=== PATIENT | male | born 1955 | race Caucasian/White ===

== ENCOUNTER 2016-09-20 15:27 | Inpatient (IN) ==
[2016-09-20] MEDS ORDERED: ONDANSETRON 4 MG/2 ML VIAL IV STA (16:11)
[2016-09-20] MEDS ORDERED: MORPHINE 2 MG/1 ML SYRINGE IV STA ×2 (16:11→17:10)
[2016-09-20 16:34] LABS: Basophils % 0.2 % (0.0-0.8); Eosinophils # 0.1 10*3/uL (0.0-0.87); Eosinophils % 1.2 % (0.00-10.9); Hematocrit 38.7 VOL% (42.0-52.0); Immature Granulocytes % 0.3 %; Immature Granulocytes Absolute 0.03 #; Lymphocytes # 1.2 10*3/uL (1.4-4.0); Lymphocytes % 13.7 % (21.2-54.2); Mean Corpuscular Hemoglobin 26 PG (27-34); Mean Corpuscular Volume 83.8 FL (87-102); Mean Platelet Volume 10.9 FL (9.6-12.0); Monocytes # 0.7 10*3/uL (0.11-0.8); Monocytes % 7.6 % (1.7-12.7); Neutrophils # 6.8 10*3/uL (1.4-7.4); Platelet Count 229 T/CUMM (130-400); Red Blood Count 4.62 MC/CUMM (3.8-5.5); Red Cell Distribution Width 15.9 % (9.3-17.3); White Blood Count 8.8 T/CUMM (4-12)
[2016-09-20] MEDS ORDERED: MORPHINE 2 MG/1 ML SYRINGE ONE ×2 (16:43→17:10)
[2016-09-20] MEDS ORDERED: ONDANSETRON 4 MG/2 ML VIAL ONE (16:43)
[2016-09-20 16:54] LABS: Albumin 3.4 G/DL (3.4-5.0); Bilirubin,Total 0.5 MG/DL (0.2-1.0); Calcium 8.6 MG/DL (8.5-10.1); Osmolality,Calculated 277.5 MOS/KG (273-304); Potassium 3.8 MMOL/L (3.5-5.1); Total Protein 6.5 G/DL (6.4-8.3)
--- NOTE | 2016-09-20 17:02 | CT Report ---
CT abdomen pelvis wo con Indication: Tenderness to palpation left lower quadrant. CT ABDOMEN AND PELVIS WITHOUT CONTRAST DLP: 885 mGy*cm. One or more of the following dose reduction techniques was used: Automated exposure control, adjustment of the mA and/or kV according the patient size, or use of iterative reconstruction techniques. Comparison: 10/22/2013. Technique: Axial noncontrast CT images of the abdomen and pelvis were obtained. Abdomen: Mild inflammation involves the descending colon where extensive diverticulosis is present. No perforation, abscess or free air. Cholecystectomy clips. Normal heart size. Prominent pericardial fat. Clear lung bases. Multiple pancreatic calcifications are similar to the previous exam. Unenhanced liver, spleen, adrenal glands remain grossly unremarkable as contrast. Nonobstructing 1 and 2 mm bilateral nephrolithiasis again shown. No bowel obstruction. Pelvis: Extensive diverticulosis of the entire colon is present, especially the rectosigmoid segment. No rectosigmoid segment inflammation. Urinary bladder is unremarkable. Prostate is normal in size. No free fluid or free air. Impression: 1. Descending colon diverticulitis. 2. Nonobstructing punctate bilateral kidney stones. 3. Status post cholecystectomy. PROCEDURE INTERPRETED AT [facility] DEPARTMENT OF RADIOLOGY Final Report Signed by: Paul Souza M.D.
[2016-09-20] MEDS ORDERED: SODIUM CHLORIDE 0.9% 500 ML IV STA ×2 (17:10→19:16)
--- NOTE | 2016-09-20 17:49 | Emergency Department Note ---
Jake Majano Brittany, am scribing for, and in the presence of, Erika De MD 16:13. Santino Majano Kathryn, MD, personally performed the services described in this documentation, ascribed by Charlotte Joseph in my presence, and it is both accurate and complete 749 . Arrival - Arrival Chief Complaint: Abdominal / Flank Pain Stated Complaint: FLANK PAIN/LL SIDE ED Nursing Triage Note: C/O HAVING PAIN IN THE LEFT LOWER ABDOMEN AREA SINCE 0200, DENIES NAUSEA., DENIES HAVING DIARHEA., DENIES VOMITING., DENIES HAVING INCREASE TEMP., DENIES HAVING URINARY SYMPTOMS,. " FEELS LIKE SOMETHING DROPPED DOWN IN THERE" Mode of Arrival: Ambulatory Limitations: No Limitations Source: Patient, Significant other, RN Notes Reviewed - History of Present Illness HPI Narrative: Patient is a 60 y/o male presenting to Non Urgent Care with c/o LLQ abdominal pain with an onset of 0200 this morning. Patient reports LLQ pain as constant, rated a 7/10. Patient denies having any associated N/V/D, fever, dysuria, hematuria, or back pain with this. Patient reports that he was able to tolerate well some jello and a piece of toast this morning. His last normal bowel movement was yesterday. Patient currently is on Plavix. He reports a history of IV dye/contrast reaction in which he became flushed afterwards. Patient has a history of Diverticulitis, but denies history of kidney stones. Patient does have a history significant for CVA x6, with most recent four in July 2016. After this occurrence patient ceased use of smoking tobacco. He also has a history of COPD, Emphysema, and NIDDM. He does utilize at home oxygen of 3 liters. No other complaint/pain. Onset (ago): hour(s) (14) Consistency: constant Severity: moderate Severity scale (1-10): 7 Quality: aching Allergies/Adverse Reactions: Allergies Allergy/AdvReac Type Severity Reaction Status Date / Time Warfarin [From Coumadin] Allergy HIVES Verified 09/20/16 15:38 Home Medications: Home Medications Medication Instructions Recorded Confirmed Type Atorvastatin [Lipitor] 40 mg PO QAM 09/20/16 09/20/16 History Clopidogrel [Plavix] 75 mg PO QAM 09/20/16 09/20/16 History Escitalopram [Lexapro] 10 mg PO BEDTIME 09/20/16 09/20/16 History Glimepiride 1 mg PO QAM 09/20/16 09/20/16 History Lisinopril [Prinivil] 10 mg PO QPM 09/20/16 09/20/16 History Metformin HCl 500 mg PO BIDAC 09/20/16 09/20/16 History Nitroglycerin Sl Tab [Nitrostat] 0.4 mg SL Q5M PRN 09/20/16 09/20/16 History raNITIdine HCl [Ranitidine HCl] 300 mg PO QAM 09/20/16 09/20/16 History Review of System - Review of System 12 point system: reviewed and no additional remarkable complaints except as stated - Review of System Constitutional: Absent: chills, fever Eyes: Absent: vision change Head/Ears/Nose/Throat: Absent: nasal drainage, sore throat Respiratory: Absent: respiratory distress Cardiovascular: Present: edema. Absent: chest pain Gastrointestinal: Present: abdominal pain. Absent: nausea, vomiting, diarrhea, constipation Genitourinary male: Absent: urgency, dysuria, frequency, hematuria Musculoskeletal: Absent: arm pain, back pain, leg pain, neck pain Skin: Absent: rash Neurological: Absent: headache Psychiatric: Absent: anxiety, depression Medical,Surgical,& Family Hx - Medical History Cardio: History of: CHF, CAD, Hypertension, [place] Psychological: History of: Bipolar Disorder, Schizophrenia Neurology: History of: Cerebrovascular Accident Endocrine: History of: Diabetes Mellitus (NIDDM), Dyslipidemia Respiratory: History of: COPD Gastrointestinal: History of: Gastrointestinal Bleed, GI Problems - Surgical History Cardiac Surgeries: Sugical HX of: Cardiac Catheterization Abdominal Surgeries: Surgical HX of: Cholecystectomy - Family History Family History: Reports;: Family Cancer, Family Diabetes - Social History Smoking Status: Smoker, status unknown Frequency of Alcohol Use: None Type of Drug Use: None Exam Vital Signs: Vital Signs Temperature 98.4 F 09/20/16 15:32 Pulse Rate 78 09/20/16 15:32 Respiratory Rate 18 09/20/16 15:32 Blood Pressure 111/69 09/20/16 15:32 O2 Sat by Pulse Oximetry 90 L 09/20/16 15:32 - General General appearance: alert, in no apparent distress - Head Head exam: Present: atraumatic, normocephalic, normal inspection - Eye Eye exam: Present: normal appearance, PERRL, EOMI - ENT ENT exam: Present: normal exam, normal oropharynx, mucous membranes moist - Neck Neck exam: Present: normal inspection, full ROM, trachea midline - Chest Chest inspection: Present: normal inspection, symmetric chest wall rise - Respiratory Respiratory exam: Present: normal lung sounds bilaterally. Absent: rales, rhonchi, wheezes - Cardiovascular Cardiovascular exam: Present: regular rate, normal rhythm ( ), normal heart sounds. Absent: murmur, rubs, gallop - Abdominal Exam Abdominal exam: Present: soft, tenderness (LLQ), guarding (mild), normal bowel sounds. Absent: distention - Extremities Exam Extremities exam: Present: normal inspection, full ROM - Back Exam Back exam: Present: normal inspection, full ROM - Neurological Exam Neurological exam: Present: alert, oriented X3, CN II-XII intact. Absent: motor sensory deficit - Psychiatric Psychiatric exam: Present: normal affect - Skin Skin exam: Present: warm, dry, intact, normal color Course Course Narrative: Diverticulitis on CT. Discussed with Hospitalist. Will admit for IV abx. - Reevaluation(s) Reevaluation #1: No change in pain with morphine. Exam stable, still moderately TTP LLQ with guarding. Will give additional pain meds. Results - Labs CBC & BMP: 09/20/16 16:26 09/20/16 16:26 - Diagnostic Findings Procedure: CT Abdomen and Pelvis: report reviewed by me (1. Descending colon diverticulitis. 2. Nonobstructing punctate bilateral kidney stones. 3. S/p cholecystectomy.) Disposition Clinical Impression: Diverticulitis Case discussed with: patient, patient's family Disposition: Still a Patient Condition: Stable Time of Disposition: 17:49
[2016-09-20] MEDS ORDERED: ONDANSETRON 4 MG/2 ML VIAL IV PRN (18:00)
[2016-09-20] MEDS ORDERED: metroNIDAZOLE INJ 500 MG in PREMIX 1 EACH IV SCH (18:00)
[2016-09-20] MEDS ORDERED: SODIUM CHLORIDE 0.9% 1,000 ML IV SCH (18:00)
[2016-09-20] MEDS ORDERED: CIPROFLOXACIN INJ 400 MG in PREMIX 1 EACH IV SCH (18:00)
[2016-09-20] MEDS ORDERED: HYDROmorphone 2 MG/1 ML VIAL IV PRN (18:00)
[2016-09-20] MEDS ORDERED: DEXTROSE 50% 25 GM/50 ML VIAL IV PRN (18:03)
[2016-09-20] MEDS ORDERED: GLUCAGON 1 MG VIAL IM PRN (18:03)
[2016-09-20] MEDS ORDERED: NITROGLYCERIN SL 0.4 MG TABLET SL PRN (18:03)
--- NOTE | 2016-09-20 18:05 | Hospitalist History & Physical ---
Assessment and Plan - Time spent with patient Time spent with patient: Greater than 30 minutes (1) Diabetes Status: Acute Assessment and plan: 60-year-old white male with multiple medical problems admitted with acute diverticulitis. Patient has no white count and no fever but due to his multiple medical problems it was felt best to admit for IV antibiotics. His case has been discussed with Dr. Michelle. Acute diverticulitis--we will start Cipro and Flagyl, clear liquid diet as tolerated, pain and nausea control Diabetes--His home medicines will be restarted except his p.o. diabetes medications. He will be started on sliding scale insulin Hypertension and CAD--restart home meds and monitor. Patient is on Plavix for stents Bipolar and schizoaffective disorder--restart home meds and monitor COPD--we will restart patient's home medicine. He is on home O2 so he will continue this here History of CVA--patient has light sensitivity and minimal left lower extremity weakness. We will continue his Plavix Current Visit: No (2) Hypertension Status: Acute Current Visit: No (3) Schizo-affective schizophrenia Status: Acute Current Visit: No (4) COPD (chronic obstructive pulmonary disease) Status: Acute Current Visit: No (5) CVA (cerebral infarction) Status: Acute Current Visit: No (6) Diverticulitis Status: Acute Current Visit: Yes History of Present Illness Chief complaint: Left lower quadrant abdominal pain History of present illness: Mr. Spence is a 60 year old male with history of bipolar disorder and schizophrenia, hypertension, diabetes, COPD, and CVA presenting to the ED with left lower quadrant pain since 2 AM this morning. Patient states the pain is stabbing with pressure and fullness. He rates it a 7 out of 10 and constant with associated nausea and no vomiting. He states he has never had this pain before. states he has run fever intermittently in the last couple of days. Patient states 2 months ago he had 6 strokes with seizures and he quit smoking at that time. He does use home oxygen on 3 L. Patient denies headache , dizziness, dysphasia, chest pain, shortness of breath, diarrhea or constipation, or lower extremity edema. Patient CT scan in the ED showing descending colon diverticulitis with nonobstructing punctate bilateral kidney stones. His white count is normal with normal LFTs. Case was discussed with Dr. Garza and admitting physician Dr. Ochoa. Patient is being admitted for diverticulitis. Home Medications Medication Instructions Recorded Confirmed Type Atorvastatin [Lipitor] 40 mg PO QAM 09/20/16 09/20/16 History Clopidogrel [Plavix] 75 mg PO QAM 09/20/16 09/20/16 History Escitalopram [Lexapro] 10 mg PO BEDTIME 09/20/16 09/20/16 History Glimepiride 1 mg PO QAM 09/20/16 09/20/16 History Lisinopril [Prinivil] 10 mg PO QPM 09/20/16 09/20/16 History Metformin HCl 500 mg PO BIDAC 09/20/16 09/20/16 History Nitroglycerin Sl Tab [Nitrostat] 0.4 mg SL Q5M PRN 09/20/16 09/20/16 History raNITIdine HCl [Ranitidine HCl] 300 mg PO QAM 09/20/16 09/20/16 History Allergies Allergy/AdvReac Type Severity Reaction Status Date / Time Warfarin [From Coumadin] Allergy HIVES Verified 09/20/16 15:38 Medical,Surgical,& Family Hx - Medical History Cardio: History of: CHF, CAD, Hypertension, [place] Psychological: History of: Bipolar Disorder, Schizophrenia Neurology: History of: Cerebrovascular Accident Endocrine: History of: Diabetes Mellitus (NIDDM), Dyslipidemia Respiratory: History of: COPD Gastrointestinal: History of: Gastrointestinal Bleed, GI Problems - Surgical History Cardiac Surgeries: Sugical HX of: Cardiac Catheterization Abdominal Surgeries: Surgical HX of: Cholecystectomy - Family History Family History: Reports;: Family Cancer, Family Diabetes - Social History Smoking Status: Former smoker Frequency of Alcohol Use: None Type of Drug Use: None Marital Status: Lives With:: Spouse Review of systems: A complete 10 system review of systems was obtained and pertinent positives and negatives are in HPI. Exam - Constitutional Vitals: Period Temp Pulse Resp BP Sys/[place]land Pulse Ox Last 24 Hr 98.4 F 78 18 111/69 90 Exam: 60-year-old white male, no acute distress, alert and oriented is present Constitutional System: No distress. No tremulousness. Head: Normocephalic, atraumatic. Ears, Nose and Throat System: No evidence of Otitis or Mastoiditis. No epistaxis or discharge Eyes System: Pupils equal, round, and reactive. Extraocular muscles intact. Neck: Supple, without adenopathy, No jugular venous distention. No thyromegaly, neck mass, or prior surgery apparent. Respiratory System: Chest clear to auscultation. Cardiovascular System: Heart with regular rate and rhythm. No murmur. GI System: Abdomen soft, tender to palpation in left lower quadrant. Normo active bowel sounds present. Musculoskeletal System: limbs with no pedal edema. unappreciable distal pulses due to adipose tissue. Neurological System: No discernable sensory deficit. No aphasia Psychiatric System: Conversation is rational Results - Labs CBC & BMP: 09/20/16 16:26 09/20/16 16:26 Lab Results: I have reviewed the past 24 hour labs - Diagnostic Findings Procedure: CT Abdomen and Pelvis: report reviewed by me (Acute diverticulitis)
[2016-09-20] MEDS: SODIUM CHLORIDE 0.9% 1,000 ML IV SCH (19:44)
[2016-09-20] MEDS: LISINOPRIL 10 MG TABLET PO SCH (20:05)
[2016-09-20] MEDS: metroNIDAZOLE INJ 500 MG in PREMIX 1 EACH IV SCH (20:20)
[2016-09-20] MEDS: INSULIN LISPRO 100 UNIT/ML SUBCUT SCH (20:45)
[2016-09-20] MEDS: CIPROFLOXACIN INJ 400 MG in PREMIX 1 EACH IV SCH (21:36)
[2016-09-20] MEDS: ESCITALOPRAM 10 MG TABLET PO SCH (21:48)
[2016-09-21] MEDS: metroNIDAZOLE INJ 500 MG in PREMIX 1 EACH IV SCH ×4 (02:07→20:59)
[2016-09-21] MEDS: SODIUM CHLORIDE 0.9% 1,000 ML IV SCH ×3 (03:52→19:14)
[2016-09-21 07:46] LABS: Basophils % 0.1 % (0.0-0.8); Eosinophils # 0.2 10*3/uL (0.0-0.87); Eosinophils % 2.2 % (0.00-10.9); Hematocrit 32.2 VOL% (42.0-52.0); Hemoglobin 10.1 GM/DL (14.0-18.0); Immature Granulocytes % 0.5 %; Immature Granulocytes Absolute 0.04 #; Lymphocytes # 1.3 10*3/uL (1.4-4.0); Lymphocytes % 16.1 % (21.2-54.2); Mean Corpuscular HGB Conc 31.4 GM/DL (32-36); Mean Corpuscular Hemoglobin 26 PG (27-34); Mean Corpuscular Volume 83.4 FL (87-102); Monocytes # 0.7 10*3/uL (0.11-0.8); Monocytes % 8.9 % (1.7-12.7); Neutrophils # 5.7 10*3/uL (1.4-7.4); Neutrophils % 72.2 % (38.7-73.9); Platelet Count 186 T/CUMM (130-400); Red Blood Count 3.86 MC/CUMM (3.8-5.5); Red Cell Distribution Width 16.4 % (9.3-17.3); White Blood Count 7.8 T/CUMM (4-12)
[2016-09-21] MEDS: INSULIN LISPRO 100 UNIT/ML SUBCUT SCH ×2 (07:56→16:37)
[2016-09-21 08:20] LABS: Calcium 7.6 MG/DL (8.5-10.1); Magnesium 1.8 MG/DL (1.8-2.4); Osmolality,Calculated 279.3 MOS/KG (273-304); Potassium 3.6 MMOL/L (3.5-5.1)
[2016-09-21] MEDS: CIPROFLOXACIN INJ 400 MG in PREMIX 1 EACH IV SCH ×2 (09:03→22:10)
[2016-09-21] MEDS: PANTOPRAZOLE 40 MG TABLET PO SCH (10:06)
[2016-09-21] MEDS: CLOPIDOGREL 75 MG TABLET PO SCH (10:06)
[2016-09-21] MEDS: ATORVASTATIN 40 MG TABLET PO SCH (10:06)
[2016-09-21] MEDS: FAMOTIDINE 20 MG TABLET PO SCH (10:07)
--- NOTE | 2016-09-21 13:39 | Hospitalist Progress Note ---
Assessment and Plan (1) Diverticulitis Status: Acute Assessment and plan: The patient has been in the hospital with left lower quadrant discomfort and liquid stools. The patient will receive IV Cipro and intravenous metronidazole. Will recheck CBC and BMP in the morning. Will check C. difficile study. Current Visit: Yes Qualifiers: Diverticulitis site: large intestine Diverticulitis bleeding: without bleeding Diverticulitis complication: without perforation or abscess Qualified Code(s): K57.32 - Diverticulitis of large intestine without perforation or abscess without bleeding Hospitalist: Subjective Interval history: The patient was admitted to hospital with left lower quadrant discomfort and loose stools. The patient has complaints of intermittent crampy discomfort which continues in the left lower quadrant. The patient denies fever, chills, hematochezia. Exam - Constitutional Vitals: Period Temp Pulse Resp BP Sys/[place] Pulse Ox Last 24 Hr 97.1 F-97.9 F 54-86 16-20 98-122/54-73 94-99 Exam: Constitutional System: Mild distress. No tremulousness. The patient has photophobia due to underlying stroke. The patient has decreased hearing. Head: Normocephalic, atraumatic. Ears, Nose and Throat System: No evidence of Otitis or Mastoiditis. No epistaxis or discharge Eyes System: Pupils equal, round, and reactive. Extraocular muscles intact. Neck: Supple, without adenopathy, No jugular venous distention. No thyromegaly , neck mass, or prior surgery apparent. Respiratory System: Chest clear to auscultation. Cardiovascular System: Heart with regular rate and rhythm. No murmur. GI System: Abdomen soft, tenderness in the left lower quadrant, protuberant obese abdomen without guarding. Normo active bowel sounds present. Musculoskeletal System: limbs with no pedal edema. Full distal pulses. Neurological System: No discernable sensory deficit. No aphasia Psychiatric System: Conversation is rational Results - Labs CBC & BMP: 09/21/16 07:37 09/21/16 07:37 Lab Results: I have reviewed the past 24 hour labs - Diagnostic Findings Procedure: CT Abdomen and Pelvis: report reviewed by me (Diverticulitis sigmoid colon)
[2016-09-21] MEDS: LISINOPRIL 10 MG TABLET PO SCH (19:03)
[2016-09-21] MEDS: ESCITALOPRAM 10 MG TABLET PO SCH (22:10)
[2016-09-22] MEDS: metroNIDAZOLE INJ 500 MG in PREMIX 1 EACH IV SCH ×4 (03:08→20:11)
[2016-09-22 05:06] LABS: Basophils % 0.2 % (0.0-0.8); Eosinophils # 0.1 10*3/uL (0.0-0.87); Eosinophils % 2.5 % (0.00-10.9); Hematocrit 33.9 VOL% (42.0-52.0); Hemoglobin 10.4 GM/DL (14.0-18.0); Immature Granulocytes % 0.4 %; Immature Granulocytes Absolute 0.02 #; Lymphocytes # 0.9 10*3/uL (1.4-4.0); Lymphocytes % 16.3 % (21.2-54.2); Mean Corpuscular HGB Conc 30.7 GM/DL (32-36); Mean Corpuscular Hemoglobin 26 PG (27-34); Mean Corpuscular Volume 85.2 FL (87-102); Mean Platelet Volume 11.1 FL (9.6-12.0); Monocytes # 0.5 10*3/uL (0.11-0.8); Monocytes % 8.2 % (1.7-12.7); Neutrophils % 72.4 % (38.7-73.9); Platelet Count 170 T/CUMM (130-400); Red Blood Count 3.98 MC/CUMM (3.8-5.5); Red Cell Distribution Width 15.8 % (9.3-17.3); White Blood Count 5.5 T/CUMM (4-12)
[2016-09-22] MEDS: SODIUM CHLORIDE 0.9% 1,000 ML IV SCH ×5 (05:53→23:59)
[2016-09-22 06:14] LABS: Calcium 7.9 MG/DL (8.5-10.1); Magnesium 1.9 MG/DL (1.8-2.4); Osmolality,Calculated 280.1 MOS/KG (273-304); Potassium 3.3 MMOL/L (3.5-5.1)
[2016-09-22] MEDS: INSULIN LISPRO 100 UNIT/ML SUBCUT SCH ×2 (09:36→19:07)
[2016-09-22] MEDS: CIPROFLOXACIN 500 MG TABLET PO SCH ×2 (09:52→20:11)
[2016-09-22] MEDS: PANTOPRAZOLE 40 MG TABLET PO SCH (09:52)
--- NOTE | 2016-09-22 09:52 | Hospitalist Progress Note ---
Assessment and Plan (1) Diverticulitis Status: Acute Assessment and plan: The patient has been in the hospital with left lower quadrant discomfort and liquid stools. The patient will change to oral Cipro and continue with intravenous metronidazole. Will recheck CBC and BMP in the morning. Will check C. difficile result. I told the patient to expect discharge home on oral Cipro and metronidazole tomorrow Current Visit: Yes Qualifiers: Diverticulitis site: large intestine Diverticulitis bleeding: without bleeding Diverticulitis complication: without perforation or abscess Qualified Code(s): K57.32 - Diverticulitis of large intestine without perforation or abscess without bleeding Hospitalist: Subjective Interval history: The patient had an uneventful night. The belly is somewhat less tender today than it was yesterday. The patient is hungry. There is no complaint of diarrhea Exam - Constitutional Vitals: Period Temp Pulse Resp BP Sys/[place] Pulse Ox Last 24 Hr 96.5 F-97.9 F 53-73 16-20 107-144/54-73 95-98 Exam: Constitutional System: Mild distress. No tremulousness. The patient has photophobia due to underlying stroke. The patient has decreased hearing. Head: Normocephalic, atraumatic. Ears, Nose and Throat System: No evidence of Otitis or Mastoiditis. No epistaxis or discharge Eyes System: Pupils equal, round, and reactive. Extraocular muscles intact. Neck: Supple, without adenopathy, No jugular venous distention. No thyromegaly , neck mass, or prior surgery apparent. Respiratory System: Chest clear to auscultation. Cardiovascular System: Heart with regular rate and rhythm. No murmur. GI System: Abdomen soft, tenderness in the left lower quadrant, protuberant obese abdomen without guarding. Normo active bowel sounds present. Musculoskeletal System: limbs with no pedal edema. Full distal pulses. Neurological System: No discernable sensory deficit. No aphasia Psychiatric System: Conversation is rational Results - Labs CBC & BMP: 09/22/16 04:52 09/22/16 04:52 Lab Results: I have reviewed the past 24 hour labs
[2016-09-22] MEDS: CLOPIDOGREL 75 MG TABLET PO SCH (09:54)
[2016-09-22] MEDS: POTASSIUM CHLORIDE 20 MEQ TABLET PO SCH ×3 (09:54→19:02)
[2016-09-22] MEDS: ATORVASTATIN 40 MG TABLET PO SCH (09:54)
[2016-09-22] MEDS: FAMOTIDINE 20 MG TABLET PO SCH (10:39)
[2016-09-22] MEDS: LISINOPRIL 10 MG TABLET PO SCH (20:11)
[2016-09-22] MEDS: ESCITALOPRAM 10 MG TABLET PO SCH (20:13)
[2016-09-23] MEDS: SODIUM CHLORIDE 0.9% 1,000 ML IV SCH (01:15)
[2016-09-23] MEDS: metroNIDAZOLE INJ 500 MG in PREMIX 1 EACH IV SCH ×2 (01:51→09:28)
[2016-09-23 05:25] LABS: Basophils % 0.2 % (0.0-0.8); Eosinophils # 0.2 10*3/uL (0.0-0.87); Eosinophils % 2.9 % (0.00-10.9); Hematocrit 33.1 VOL% (42.0-52.0); Hemoglobin 10.5 GM/DL (14.0-18.0); Immature Granulocytes % 0.6 %; Immature Granulocytes Absolute 0.04 #; Lymphocytes # 1.3 10*3/uL (1.4-4.0); Lymphocytes % 20.3 % (21.2-54.2); Mean Corpuscular HGB Conc 31.7 GM/DL (32-36); Mean Corpuscular Hemoglobin 26 PG (27-34); Mean Corpuscular Volume 82.5 FL (87-102); Mean Platelet Volume 11.7 FL (9.6-12.0); Monocytes # 0.6 10*3/uL (0.11-0.8); Monocytes % 10.2 % (1.7-12.7); Neutrophils # 4.1 10*3/uL (1.4-7.4); Neutrophils % 65.8 % (38.7-73.9); Platelet Count 185 T/CUMM (130-400); Red Blood Count 4.01 MC/CUMM (3.8-5.5); Red Cell Distribution Width 15.8 % (9.3-17.3); White Blood Count 6.2 T/CUMM (4-12)
[2016-09-23 06:05] LABS: Calcium 7.5 MG/DL (8.5-10.1); Osmolality,Calculated 279.1 MOS/KG (273-304)
[2016-09-23] MEDS: ATORVASTATIN 40 MG TABLET PO SCH (09:29)
[2016-09-23] MEDS: INSULIN LISPRO 100 UNIT/ML SUBCUT SCH (09:29)
[2016-09-23] MEDS: PANTOPRAZOLE 40 MG TABLET PO SCH (09:29)
[2016-09-23] MEDS: CLOPIDOGREL 75 MG TABLET PO SCH (09:29)
[2016-09-23] MEDS: FAMOTIDINE 20 MG TABLET PO SCH (09:29)
[2016-09-23] MEDS: CIPROFLOXACIN 500 MG TABLET PO SCH (09:29)
--- NOTE | 2016-09-23 10:36 | Physician Query Form ---
CLICK EDIT DOCUMENT TO SELECT QUERY ANSWER --> OK --> SIGN Araceli Ybarra RN Clinical Operating Cost Clerk W) [phone] (f) [phone] [email or web address] PROVIDERS: Make your selection(s) from the choices in EACH section by typing an "x" and enter comments in the comment section. Please use your independent medical judgment in providing your response. This request does not imply that any particular answer is desired or expected. CLINICAL INDICATORS: (Providers should not edit this section) Pt. has a history of COPD. Based on documentation of "He does utilize at home oxygen of 3 liters". Based on the above, could you clarify the appropriate diagnosis, if significant , that supports the above abnormalities and additional evaluation, monitoring, and/or treatment rendered: ( ) Pt. has chronic respiratory failure ( ) Pt. does not have chronic respiratory failure ( ) Other, please specify: ( ) Clinically unable to determine COMMENTS: Use of terms such as suspected, likely, or probable (associated with a specific diagnosis that is being evaluated, monitored, or treated as if it exists) are acceptable and can be restated in the discharge summary if not ruled out. [facility]
[2016-09-23 11:50] VITALS: BP 123/64
--- NOTE | 2016-09-23 12:02 | Discharge Summary ---
Hospital Course - Hospital Course Hospital Course: Mr. Spence is a 60 yo male with chronic hypoxic respiratory failure (on home 3L), also with Diabetes, HTN, H/O CVA, CAD and Diverticulosis who was admitted on the above admit date with a flare of acute diverticulitis. Diagnosis made via CT abdomen. He was initiated on Cipro and Flagyl as well as a clear liquid diet. He did have reports of diarrhea that are improving but still with loose stools. C. Diff negative. Diet was advanced as tolerated. Patient did not have fever nor elevated WBC count. On the day of discharge, he did report mild nausea but had not asked to receive any anti-emetic. He reports that the nausea is likely related to the food and would rather eat more solid food. Abd pain is improving. He would like to go home and continue therapies as previously outline. He does report some nasal congestion and would like something for this. Otherwise, the patient is hemodynamically stable and has reached maximal benefit of this hospitalization. He is ready for discharge with oral abx for diverticulitis. Diagnosis - Discharge Diagnosis (1) Diverticulitis large intestine Status: Acute Specialty Discharge - Follow Up or Referrals Follow up with: Yaz Crenshaw DO [Physician] - 2 Weeks (Diverticulitis, Hypokalemia) Discharge Plan - Discharge Medications New RX: Atorvastatin [Lipitor] 40 mg PO QAM tablet RX: Ciprofloxacin Tab [Cipro Tab] 500 mg PO Q12HR #14 tablet RX: Clopidogrel [Plavix] 75 mg PO QAM #30 tablet RX: Lisinopril [Prinivil] 10 mg PO QPM tablet Ondansetron Tab [Zofran Tab] 4 mg PO Q6HR PRN #30 tablet PRN Reason: Nausea RX: Pantoprazole Tab [Protonix Tab] 40 mg PO DAILY #30 tablet metroNIDAZOLE [Metronidazole] 500 mg PO Q6HR #28 tablet RX: Escitalopram [Lexapro] 10 mg PO BEDTIME tablet guaiFENesin ER TAB [Mucinex] 600 mg PO DAILY #10 tablet Continue RX: Nitroglycerin Sl Tab [Nitrostat] 0.4 mg SL Q5M PRN PRN Reason: Chest Pain RX: raNITIdine HCl [Ranitidine HCl] 300 mg PO QPM No Action RX: Glimepiride 1 mg PO QAM RX: Lisinopril [Prinivil] 10 mg PO QPM Escitalopram [Lexapro] 10 mg PO BEDTIME RX: Atorvastatin [Lipitor] 40 mg PO QAM RX: Metformin HCl 500 mg PO BIDAC Clopidogrel [Plavix] 75 mg PO QAM - Follow Up or Referral - Forms/Instructions Exam - Constitutional Vitals: Period Temp Pulse Resp BP Sys/[place] Pulse Ox Last 24 Hr 97.0 F-97.9 F 56-76 17-20 113-140/59-77 95-100 General appearance: over weight - Head Head exam: Present: normocephalic, atraumatic - Respiratory Respiratory exam: Present: clear to auscultation bilaterally - Cardiovascular Cardiovascular exam: Present: regular rate and rhythm - GI/Abdominal GI/Abdominal exam: Present: hyperactive bowel sounds, soft. Absent: guarding, tenderness - Neurological Exam Neurological exam: Present: oriented X3 - Psychiatric Psychiatric exam: Present: normal mood - Skin Skin exam: Present: normal color, warm, dry Discharge Results Labs on day of discharge: Labs from last 24 hours 09/23/16 09/23/16 09/23/16 06:58 04:38 04:38 WBC 6.2 RBC 4.01 Hgb 10.5 L Hct 33.1 L MCV 82.5 L MCH 26 L MCHC 31.7 L RDW 15.8 Plt Count 185 MPV 11.7 Neut % (Auto) 65.8 Lymph % (Auto) 20.3 L [place] % (Auto) 10.2 Eos % (Auto) 2.9 Baso % (Auto) 0.2 Neut # (Auto) 4.1 Lymph # (Auto) 1.3 L [place] # (Auto) 0.6 Eos # (Auto) 0.2 Baso # (Auto) 0.0 Immature Gran % 0.6 Nucleated RBC % 0.0 Immature Gran # 0.04 Nucleated RBCs # 0.00 Sodium 142 Potassium 4.0 Chloride 106 Carbon Dioxide 30 Anion Gap 10.0 BUN 3 L Creatinine 0.60 L GFR Calculation 136 BUN/Creatinine Ratio 5.00 L Glucose 100 POC Glucose 100 Calculated Osmolality 279.1 Calcium 7.5 L Magnesium 2.0 09/22/16 09/22/16 09/22/16 22:00 19:02 15:46 WBC RBC Hgb Hct MCV MCH MCHC RDW Plt Count MPV Neut % (Auto) Lymph % (Auto) [place] % (Auto) Eos % (Auto) Baso % (Auto) Neut # (Auto) Lymph # (Auto) [place] # (Auto) Eos # (Auto) Baso # (Auto) Immature Gran % Nucleated RBC % Immature Gran # Nucleated RBCs # Sodium Potassium Chloride Carbon Dioxide Anion Gap BUN Creatinine GFR Calculation BUN/Creatinine Ratio Glucose POC Glucose 116 H 206 H 99 Calculated Osmolality Calcium Magnesium 09/22/16 12:30 WBC RBC Hgb Hct MCV MCH MCHC RDW Plt Count MPV Neut % (Auto) Lymph % (Auto) [place] % (Auto) Eos % (Auto) Baso % (Auto) Neut # (Auto) Lymph # (Auto) [place] # (Auto) Eos # (Auto) Baso # (Auto) Immature Gran % Nucleated RBC % Immature Gran # Nucleated RBCs # Sodium Potassium Chloride Carbon Dioxide Anion Gap BUN Creatinine GFR Calculation BUN/Creatinine Ratio Glucose POC Glucose 134 H Calculated Osmolality Calcium Magnesium DS: Provider Date of admission: 09/20/16 17:32 Primary care physician: . No PCP Attending physician on admission: Ron Rizvi MD Consults: 09/20/16 18:39 Consult to Pharmacy [CONS] Routine Reason for Pharmacy Consult: Adjust Meds Renal Funct 09/20/16 20:27 Consult to Dietitian [CONS] Routine Reason for Dietitian: Dietary Consult Consult Comment: weight loss Discharging clinician: Whitley Self MD Expected date of discharge: 09/23/16
--- NOTE | 2016-09-23 13:35 | Physician Query Form ---
CLICK EDIT DOCUMENT TO SELECT QUERY ANSWER --> OK --> SIGN Araceli Ybarra RN Clinical Structural Ironworker W) [phone] (f) [phone] [email or web address]: Make your selection(s) from the choices in EACH section by typing an "x" and enter comments in the comment section. Please use your independent medical judgment in providing your response. This request does not imply that any particular answer is desired or expected. CLINICAL INDICATORS: (Providers should not edit this section) Pt. has a history of COPD. Based on documentation of "He does utilize at home oxygen of 3 liters". Based on the above, could you clarify the appropriate diagnosis, if significant , that supports the above abnormalities and additional evaluation, monitoring, and/or treatment rendered: ( ) Pt. has chronic respiratory failure ( ) Pt. does not have chronic respiratory failure ( ) Other, please specify: ( ) Clinically unable to determine COMMENTS: Use of terms such as suspected, likely, or probable (associated with a specific diagnosis that is being evaluated, monitored, or treated as if it exists) are acceptable and can be restated in the discharge summary if not ruled out. [facility]
[2016-09-23] MEDS ORDERED: metFORMIN 500 MG TABLET PO SCH (16:30)
[2016-09-24] MEDS ORDERED: GLIMEPIRIDE 2 MG TABLET PO SCH (09:00)
== END 2016-09-23 13:20 | disposition home or self-care (01) | DRG 392 ==
LOC: N.ED 15:27 → SUATTDRO 17:32 → N.EDINP 17:32 → N.3E 18:00
PROVIDERS: ADMIT Internal Medicine; ATTEND Internal Medicine